=== PATIENT | female | born 1960 | race Caucasian/White ===

== ENCOUNTER 2017-06-11 07:38 | Emergency (ER) | payer BC ==
[2017-06-11 07:45] VITALS: BP 140/88; PULSE 84; TEMP 98.4; BMI 31.1
--- NOTE | 2017-06-11 07:50 | PDOC ---
History of Present Illness - General Chief Complaint: Cold Symptoms Stated Complaint: COUGHING Time Seen by Provider: 06/11/17 07:50 Past History - Past Medical History Allergies/Adverse Reactions: Allergies Allergy/AdvReac Type Severity Reaction Status Date / Time No Known Allergies Allergy Verified 06/11/17 07:44 Home Medications: Ambulatory Orders Entecavir [Baraclude] 1 mg PO DAILY 07/24/13 Ibuprofen [Motrin -] 600 mg PO Q8H PRN #0 tablet 07/25/13 Levofloxacin [Levaquin -] 500 mg PO DAILY@0600 #0 tablet 07/25/13 Oseltamivir Phosphate [Tamiflu -] 75 mg PO BID #0 capsule 07/25/13 Kidney Stones: Yes Liver Disease: Yes (hepatitis) - Surgical History Cholecystectomy: Yes - Immunization History Immunization Up to Date: Yes - Suicide/Smoking/Psychosocial Hx Smoking Status: No Smoking History: Never smoked Have you smoked in the past 12 months: No Number of Cigarettes Smoked Daily: 0 Hx Alcohol Use: No Drug/Substance Use Hx: No Substance Use Type: None Hx Substance Use Treatment: No *Physical Exam - Vital Signs Last Vital Signs Temp Pulse Resp BP Pulse Ox 98.4 F 84 18 140/88 97 06/11/17 07:42 06/11/17 07:42 06/11/17 07:42 06/11/17 07:42 06/11/17 07:42
--- NOTE | 2017-06-11 07:57 | PDOC ---
Attending Attestation - Resident Resident Name: David Chaparro - ED Attending Attestation I have performed the following: I have examined & evaluated the patient, The case was reviewed & discussed with the resident, I agree w/resident's findings & plan, Exceptions are as noted - HPI HPI: 06/11/17 07:53 Cold, Cough and Congestion - Physicial Exam PE: 06/11/17 07:54 VSS/NONTOXIC - Medical Decision Making 06/11/17 07:[address] David Chaparro's Assessment and Plan
--- NOTE | 2017-06-11 08:16 | PDOC ---
History of Present Illness - General Chief Complaint: Cold Symptoms Stated Complaint: COUGHING Time Seen by Provider: 06/11/17 07:50 History Source: Patient Exam Limitations: No Limitations - History of Present Illness Initial Comments: 06/11/17 08:49 My chief complaint: Dry cough 3 days with intermittent headache History of present illness: Patient is a 56-year-old female with a history of renal calculi here today complaining of a dry cough with chest congestion and intermittent headache. Patient reports feeling lightheaded when coughing a lot. Patient denies any wheezing or shortness of breath. 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 Patient reports having itchy throat intermittently. Patient thinks that she had a fever yesterday none noted today. Patient has had no recent travel. Patient denies any nausea vomiting or diarrhea. Timing/Duration: intermittent Severity: mild Associated Symptoms: reports: cough Past History - Past Medical History Allergies/Adverse Reactions: Allergies Allergy/AdvReac Type Severity Reaction Status Date / Time No Known Allergies Allergy Verified 06/11/17 07:44 Home Medications: Ambulatory Orders Entecavir [Baraclude] 1 mg PO DAILY 07/24/13 Guaifenesin Dm [Mucinex Dm -] 1 - 2 tab PO Q12H PRN #20 tab.er.12h 06/11/17 Kidney Stones: Yes Liver Disease: Yes (hepatitis) - Surgical History Cholecystectomy: Yes - Immunization History Immunization Up to Date: Yes - Suicide/Smoking/Psychosocial Hx Smoking Status: No Smoking History: Never smoked Have you smoked in the past 12 months: No Number of Cigarettes Smoked Daily: 0 Hx Alcohol Use: No Drug/Substance Use Hx: No Substance Use Type: None Hx Substance Use Treatment: No Review of Systems - Review of Systems Able to Perform ROS?: Yes Constitutional: No: Symptoms Reported HEENTM: No: Symptoms Reported Respiratory: Yes: Cough. No: Symptoms reported Cardiac (ROS): Yes: Chest Pain (DISCOMFORT WITH COUGH ONLY) ABD/GI: No: Symptoms Reported : No: Symptoms Reported Musculoskeletal: No: Symptoms Reported Integumentary: No: Symptoms Reported *Physical Exam - Vital Signs Last Vital Signs Temp Pulse Resp BP Pulse Ox 98.4 F 84 18 140/88 97 06/11/17 07:42 06/11/17 07:42 06/11/17 07:42 06/11/17 07:42 06/11/17 07:42 - Physical Exam General Appearance: Yes: Appropriately Dressed HEENT: positive: Normal ENT Inspection Neck: negative: Lymphadenopathy (R), Lymphadenopathy (L) Respiratory/Chest: positive: Lungs Clear, Normal Breath Sounds. negative: Chest Tender, Respiratory Distress Cardiovascular: positive: Regular Rhythm, Regular Rate, S1, S2 Integumentary: positive: Normal Color Neurologic: positive: Alert, Normal Response, Responsive Medical Decision Making - Medical Decision Making 06/11/17 08:50 Patient is a 56-year-old female with a history of renal calculi here today complaining of a dry cough with chest congestion and intermittent headache. Patient reports feeling lightheaded when coughing a lot. Patient denies any wheezing or shortness of breath. 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 Patient reports having itchy throat intermittently. Patient thinks that she had a fever yesterday none noted today. Patient has had no recent travel. Patient denies any nausea vomiting or diarrhea. Patient reports having pneumonia 4 years ago. Patient denies any chills. r/o INFLUENZA R/O INFILTRATE PLAN: INFLUENZA A OR B RAPID negative XRAY CHEST PA/LATERAL increase in perihilar markings with no evidence of infiltrate duoneb now mucinex DM 1-2 caps every 12 hrs prn cough for 5 days 06/11/17 08:53 06/11/17 09:17 *DC/Admit/Observation/Transfer Diagnosis at time of Disposition: Viral respiratory illness - Discharge Dispostion Disposition: HOME Condition at time of disposition: Stable - Prescriptions Prescriptions: Guaifenesin Dm [Mucinex Dm -] 1 - 2 tab PO Q12H PRN #20 tab.er.12h PRN Reason: Cough - Referrals Referrals: Fuad Arellano MD [Primary Care Provider] - - Patient Instructions Additional Instructions: Drink a lot a fluids and rest Follow-up with your primary care provider within the next couple of days Return to emergency room if any difficulty breathing or new symptoms develop Patient voiced understanding of discharge instructions and all questions were answered - Post Discharge Activity Forms/Work/School Notes: Back to Work
[2017-06-11] MEDS ORDERED: ALBUTEROL SO4 2.5/IPRATROPIUM 0.5 INH SOL 3 ML VIAL.NEB. NEB ONE ×2 (08:23→08:32)
== END 2017-06-11 09:29 | disposition home or self-care (01) ==
LOC: JER 07:38 → JERFT 07:38
PROC: 3E0F7GC Introduction of Other Therapeutic Substance into Respiratory Tract, Via Natural or Artificial Opening (ICD-10-PCS; principal; 2017-06-11)
DX: J06.9 Acute upper respiratory infection, unspecified (principal); B97.89 Other viral agents as the cause of diseases classified elsewhere
CPT/HCPCS: 71020-TC; 87804; 99281-25